=== PATIENT | male | born 1975 | race African-American/Black ===

== ENCOUNTER 2018-12-12 17:51 | Emergency (ER) | payer SELFPAY ==
[2018-12-12 18:12] VITALS: BP 120/69; PULSE 92; TEMP 97.6; BMI 29.9
--- NOTE | 2018-12-12 19:00 | PDOC ---
History of Present Illness - General Chief Complaint: Alcohol intoxication Stated Complaint: INTOX Time Seen by Provider: 12/12/18 18:58 History Source: Patient Exam Limitations: Clinical Condition, Intoxication - History of Present Illness Initial Comments: History is limited bc patient is intoxicated and will not speak. He only nods his head yes or no. 43 yo M who does not admit to having any medical history presents to the ER drunk. When asked how much he drank he raises 4 fingers and nods his head yes when asked if he drank 4 liters of alcohol. He nods yes when asked if he vomitted. He nods no when asked if blood came out of his vomitus at any point. He nods yes saying that his stomach hurt before he arrived. He nods no when asked if his stomach is currently hurting. The patient refuses to verbalize any statements. He nods no when asked if he has a headache. Past History - Past Medical History Allergies/Adverse Reactions: Allergies Allergy/AdvReac Type Severity Reaction Status Date / Time No Known Allergies Allergy Verified 12/12/18 17:54 CVA: No COPD: No - Suicide/Smoking/Psychosocial Hx Smoking History: Never smoked Have you smoked in the past 12 months: No Information on smoking cessation initiated: No Hx Alcohol Use: No Drug/Substance Use Hx: No Review of Systems - Review of Systems Able to Perform ROS?: No (intoxicated) *Physical Exam - Vital Signs Last Vital Signs Temp Pulse Resp BP Pulse Ox 97.6 F 92 H 16 120/69 100 12/12/18 17:55 12/12/18 17:55 12/12/18 17:55 12/12/18 17:55 12/12/18 17:55 - Physical Exam General Appearance: Yes: Nourished, Appropriately Dressed, Alcohol on Breath, Intoxicated. No: Apparent Distress HEENT: positive: Normal ENT Inspection. negative: Pale Conjunctivae, Rhinorrhea , Excessive drooling Neck: positive: Trachea midline, Supple. negative: Lymphadenopathy (R), Lymphadenopathy (L) Respiratory/Chest: positive: Lungs Clear, Normal Breath Sounds. negative: Respiratory Distress Cardiovascular: positive: Regular Rhythm, Regular Rate, S1, S2. negative: Edema , JVD Vascular Pulses: Dorsalis-Pedis (R): 2+, Doralis-Pedis (L): 2+ Gastrointestinal/Abdominal: positive: Normal Bowel Sounds, Tender (Mild TTP in the epigastric region), Soft. negative: Guarding, Rebound Rectal Exam: positive: deferred Lymphatic: negative: Adenopathy Musculoskeletal: positive: Normal Inspection Extremity: positive: Normal Capillary Refill, Normal Inspection, Normal Range of Motion Integumentary: positive: Normal Color, Dry, Warm Neurologic: positive: Responsive (withdraws from pain), Disoriented, Other. negative: Fully Oriented, Normal Mood/Affect ED Treatment Course - LABORATORY CBC & Chemistry Diagram: 12/12/18 19:26 12/12/18 19:26 Medical Decision Making - Medical Decision Making 43 yo M who does not admit to having any medical history presents to the ER drunk. When asked how much he drank he raises 4 fingers and nods his head yes when asked if he drank 4 liters of alcohol. He nods yes when asked if he vomitted. He nods no when asked if blood came out of his vomitus at any point. He nods yes saying that his stomach hurt before he arrived. He nods no when asked if his stomach is currently hurting. The patient refuses to verbalize any statements. He nods no when asked if he has a headache. VS: Wnl DDx IBNLT: Intoxication, pancreatitis, dehydration, electrolyte/metabolic disturbance. Plan: Labs, Fluids, ekg, supportive care, re-assess. Patient is clinically sober after 3 L of NS and a banana bag, is walking straight in the ER, and requests discharge. Will send home with pcp fu and alcohol abstinence instructions. *DC/Admit/Observation/Transfer Diagnosis at time of Disposition: Alcohol intoxication - Discharge Dispostion Disposition: HOME Condition at time of disposition: Improved Decision to Admit order: No - Referrals Referrals: [facility] [place] [Provider Group] - Patient Instructions Printed Discharge Instructions: DI for Alcohol Abuse Additional Instructions: You came into the ER because you drank too much alcohol and vomited. We gave you fluids, vitamins and other supportive care to take care of you. We made sure you don't have an infection and that your blood chemistry was within normal limits. Please try to stop drinking. YOU MUST SCHEDULE A FOLLOW UP APPOINTMENT WITH YOUR PCP IN THE NEXT 2 DAYS. Come back to the ER if your pain worsens, you vomit, or have any other new or worsening concerns. Thank you for coming to the [facility] Er. We hope you feel better soon! Print Language: ROMANIAN - Post Discharge Activity
[2018-12-12] MEDS ORDERED: SODIUM CHLORIDE 0.9% 500 ML INFUS.BAG IV ONE (19:08)
[2018-12-12] MEDS ORDERED: FOLIC ACID INJECTION - 1 MG, THIAMINE HCL 100 MG, MULTIVIT INJECTION ADULT 10 ML in SOD... IVPB ONE (19:08)
--- NOTE | 2018-12-12 19:29 | PDOC ---
Attending Attestation - Resident Resident Name: Carlos Bridges - ED Attending Attestation I have performed the following: I have examined & evaluated the patient, The case was reviewed & discussed with the resident, I agree w/resident's findings & plan, Exceptions are as noted - HPI HPI: 12/12/18 19:24 43 yo male no known pmhx here with etoh intoxication. pt states he draink " 4 " today. is poor historian and refusing to answer most questions. pt can state his name, and noted slurred speech. when asked if he drinks daily he nods no, when ask if he in pain he states no. denies other complaints. agrees with head nodding . denies trauma. - Physicial Exam PE: 12/12/18 19:25 awake eyes closed, opens when asked. speech is slurred. head atraumatic. lung clear bilaterally heart rrr no mrg abd soft nt nd. ext wwp no edema. no calf tenderness. skin warm and dry. nuero moves all four ext. speech slurred. gait not tested due to suspected intoxication. - Medical Decision Making 12/12/18 19:26 pt with etoh intoxication . plan labs etoh level. hydration. reassess for sobriety. r/o other electrolyte abnormality or acidosis. 12/13/18 01:00 pt reassessed ambulating without difficulty. would like to go home. states he has someone coming to pick him up. dc home.
[2018-12-12 19:52] LABS: BASO % 0.2 % (0-2.0); EOS % 0.4 % (0-4.5); HEMATOCRIT 42.6 % (35.4-49); LYMPH % 15.9 % (8-40); MCH 29.7 pg (25.7-33.7); MCHC 32.9 g/dl (32.0-35.9); MEAN CELL VOLUME 90.3 fl (80-96); MEAN PLT VOLUME 9.6 fl (7.5-11.1); MONO % 4.6 % (3.8-10.2); NEUT % 78.9 % (42.8-82.8); PLATELET COUNT 245 K/MM3 (134-434); RBC 4.71 M/mm3 (4.00-5.60); RDW 12.6 % (11.9-15.9); WHITE BLOOD COUNT 8.2 K/mm3 (4.0-10.0)
[2018-12-12 20:26] LABS: INR 0.98 (0.83-1.09); PROTHROMBIN TIME (PATIENT) 11.6 SEC (9.7-13.0)
[2018-12-12 20:39] LABS: CREATININE 0.9 mg/dL (0.55-1.3)
[2018-12-12 20:40] LABS: ALBUMIN 4.2 g/dl (3.4-5.0); CO2 29 mmol/L (21-32)
[2018-12-12 21:06] LABS: ALK PHOS 44 U/L (45-117); ANION GAP 8 MMOL/L (8-16); BILIRUBIN,TOTAL 0.4 mg/dL (0.2-1); BLOOD UREA NITROGEN 13 mg/dL (7-18); CALCIUM 8.7 mg/dL (8.5-10.1); CHLORIDE 100 mmol/L (98-107); GLUCOSE,RANDOM 127 mg/dL (74-106); POTASSIUM 3.9 mmol/L (3.5-5.1); SGOT/AST 48 U/L (15-37); SGPT/ALT 35 U/L (13-61); SODIUM 137 mmol/L (136-145); TOT PROT 7.9 g/dl (6.4-8.2)
--- NOTE | 2018-12-14 10:15 | EKG ---
Test Reason : Blood Pressure : / mmHG Vent. Rate : 078 BPM Atrial Rate : 078 BPM P-R Int : 144 ms QRS Dur : 100 ms QT Int : 394 ms P-R-T Axes : 043 000 050 degrees QTc Int : 449 ms NORMAL SINUS RHYTHM MINIMAL VOLTAGE CRITERIA FOR LVH, MAY BE NORMAL VARIANT BORDERLINE ECG NO PREVIOUS ECGS AVAILABLE Confirmed by UTE ALVARADO, JESICA ([id number]) on 12/14/2018 10:15:26 AM Referred By: Confirmed By:JESICA UNGER MD
== END 2018-12-13 00:06 | disposition home or self-care (01) ==
LOC: JER 17:51
PROC: 3E033GC Introduction of Other Therapeutic Substance into Peripheral Vein, Percutaneous Approach (ICD-10-PCS; principal; 2018-12-12)
DX: F10.120 Alcohol abuse with intoxication, uncomplicated (principal); Y90.8 Blood alcohol level of 240 mg/100 ml or more
CPT/HCPCS: 36415; 80053; 80307; 83690; 85025; 85610; 93005; 93010; 99283-25; J7030